=== PATIENT | female | born 1965 | race Caucasian/White ===

== ENCOUNTER → 2017-07-21 | Outpatient (CLI) | payer MEDICAID | LOC: CIMAGING 07:14 | PROVIDERS: ATTEND Advanced Practice Midwife | DX: N85.2 Hypertrophy of uterus (principal); D25.2 Subserosal leiomyoma of uterus; D25.1 Intramural leiomyoma of uterus; N83.202 Unspecified ovarian cyst, left side | CPT/HCPCS: 76856-PO ==